=== PATIENT | female | born 1980 | race Caucasian/White ===

== ENCOUNTER 2017-12-27 03:50 | Inpatient (IN) | payer OTHER ==
[2017-12-27] MEDS ORDERED: Penicillin G Potassium IV* 5,000,000 UNITS in NS 0.9% 100 ML* 100 ML IVPB ONE (04:35)
[2017-12-27 05:12] LABS: ABS Basophils 0.1 10^3/ul (0-0.2); ABS Eosinophils 0.1 10^3/ul (0-0.6); ABS Lymphocytes 1.2 10^3/ul (1.0-4.8); ABS Monocytes 0.7 10^3/ul (0-0.8); ABS Neutrophils 10.7 10^3/ul (1.5-7.7); ABS Nucleated RBC 0 10^3/ul; Eosinophil % 0.9 % (0-6); Hematocrit 39 % (35-47); Hemoglobin 13.5 g/dl (12.0-16.0); Lymphocyte % 9.4 % (25-47); Mean Corpuscular HGB Conc 35 g/dl (31-36); Mean Corpuscular Hemoglobin 32 pg (27-31); Mean Corpuscular Volume 93 fL (80-97); Mean Platelet Volume 10 um3 (7.4-10.4); Nucleated Red Blood Cells % 0; Platelet Count 182 10^3/ul (150-450); Red Blood Count 4.19 10^6/ul (4.0-5.4); Red Cell Distribution Width 13 % (10.5-15); White Blood Count 12.7 10^3/ul (3.5-10.8)
[2017-12-27] MEDS ORDERED: Misoprostol TAB* 100 MCG ONE (09:10)
[2017-12-27] MEDS: Penicillin G Potassium IV* 2,500,000 UNITS in NS 0.9% 100 ML* 100 ML IVPB SCH ×4 (09:52→21:29)
[2017-12-27] MEDS: Levothyroxine TAB* 100 MCG TAB PO SCH (14:46)
[2017-12-27] MEDS ORDERED: Oxytocin in LR* 20 UNITS/1,000 ML BAG IVPB ONE (20:22)
[2017-12-27] MEDS ORDERED: Oxytocin in LR* 20 UNITS/1,000 ML BAG IVPB SCH (21:00)
[2017-12-28] MEDS ORDERED: fentaNYL* 50 MCG/ML 2 ML VIAL (100 MCG VIAL) IV SLOW PU ONE (00:51)
[2017-12-28] MEDS ORDERED: fentaNYL* 50 MCG/ML 2 ML VIAL (100 MCG VIAL) ONE ×2 (00:54→02:29)
[2017-12-28] MEDS ORDERED: OBEPIDURAL* 250 ML EPIDURAL ONE (01:31)
[2017-12-28] MEDS ORDERED: Famotidine TAB* 20 MG PO PRN (01:38)
[2017-12-28] MEDS ORDERED: EPHEDrine (Pressors)* 50 MG/ML VIAL IV PUSH PRN ×2 (01:38)
[2017-12-28] MEDS ORDERED: Phenylephrine IV* 40 MCG/ML 10 ML SYRINGE IV PUSH PRN ×2 (01:38)
[2017-12-28] MEDS ORDERED: Sodium Citrate/Citric Acid* 15 ML UDC PO PRN (01:38)
[2017-12-28] MEDS ORDERED: OBEPIDURAL* 250 ML EPIDURAL SCH (02:00)
[2017-12-28] MEDS: Penicillin G Potassium IV* 2,500,000 UNITS in NS 0.9% 100 ML* 100 ML IVPB SCH ×2 (02:14→12:45)
[2017-12-28] MEDS ORDERED: Oxytocin in LR* 20 UNITS/1,000 ML BAG IVPB SCH (03:30)
[2017-12-28] MEDS ORDERED: Witch Hazel PAD* JAR TOPICAL PRN (03:43)
[2017-12-28] MEDS ORDERED: Glycerin ADULT SUPP PR PRN (03:43)
[2017-12-28] MEDS ORDERED: Dibucaine 1% 28.35 GM TUBE PR PRN (03:43)
[2017-12-28] MEDS: Docusate CAP* 100 MG PO SCH ×3 (09:21→21:50)
[2017-12-28] MEDS: Simethicone TAB* 80 MG TAB.CHEW PO SCH ×4 (09:21→22:34)
[2017-12-28] MEDS: Ibuprofen TAB* 600 MG PO PRN ×3 (09:21→21:49)
[2017-12-28] MEDS: Levothyroxine TAB* 100 MCG TAB PO SCH (12:46)
[2017-12-28] MEDS: Acetaminophen TAB* 325 MG PO PRN (21:51)
--- NOTE | 2017-12-28 22:27 | PTEDU ---
Patient Name: ROLANDA SCHULER JALEEL YUVALROLANDA selected video: BBOB: Bonding Through Infant Massage to view on 12/28/2017 at 1 0:26:38 PM from [id number]
[2017-12-29] MEDS: Ibuprofen TAB* 600 MG PO PRN ×3 (03:51→18:24)
[2017-12-29] MEDS: Acetaminophen TAB* 325 MG PO PRN ×4 (03:51→21:36)
[2017-12-29 06:45] LABS: ABS Basophils 0.1 10^3/ul (0-0.2); ABS Eosinophils 0.1 10^3/ul (0-0.6); ABS Lymphocytes 1.7 10^3/ul (1.0-4.8); ABS Neutrophils 11.3 10^3/ul (1.5-7.7); ABS Nucleated RBC 0 10^3/ul; Eosinophil % 0.7 % (0-6); Hematocrit 30 % (35-47); Hemoglobin 10.7 g/dl (12.0-16.0); Lymphocyte % 12.3 % (25-47); Mean Corpuscular HGB Conc 36 g/dl (31-36); Mean Corpuscular Hemoglobin 33 pg (27-31); Mean Corpuscular Volume 93 fL (80-97); Mean Platelet Volume 10 um3 (7.4-10.4); Nucleated Red Blood Cells % 0; Platelet Count 162 10^3/ul (150-450); Red Blood Count 3.24 10^6/ul (4.0-5.4); Red Cell Distribution Width 13 % (10.5-15); White Blood Count 14.2 10^3/ul (3.5-10.8)
[2017-12-29] MEDS: Docusate CAP* 100 MG PO SCH ×3 (08:48→21:36)
[2017-12-29] MEDS ORDERED: Ferrous Gluconate TAB* 324 MG TAB PO SCH (09:00)
--- NOTE | 2017-12-29 09:21 | PTEDU ---
Patient Name: ROLANDA SCHULER JALEEL BARAKATROLANDA selected video: Follow Me Mum: The Tomas to Successful to view on 0 12/29/2017 at 9:21:04 AM [id number]
[2017-12-29] MEDS: Levothyroxine TAB* 100 MCG TAB PO SCH (13:20)
--- NOTE | 2017-12-29 20:01 | PTEDU ---
Patient Name: ROLANDA SCHULER JALEEL BARAKATROLANDA selected video: BBOB: Nurturing Your Gorgeous &Growing Baby by to view on 12/29/2017 at 8:01:08 PM [id number]
[2017-12-30] MEDS: Ibuprofen TAB* 600 MG PO PRN ×2 (00:30→06:18)
[2017-12-30] MEDS: Acetaminophen TAB* 325 MG PO PRN ×2 (03:51→09:26)
[2017-12-30 08:20] VITALS: BP 93/44
[2017-12-30] MEDS: Docusate CAP* 100 MG PO SCH (09:22)
[2017-12-30] MEDS: Levothyroxine TAB* 100 MCG TAB PO SCH (09:23)
== END 2017-12-30 12:50 | disposition home or self-care (01) | DRG 775 ==
LOC: MCHOBOUT 03:50 → MCHOB 04:30
PROVIDERS: ADMIT Midwife; ATTEND Midwife
PROC: 10E0XZZ Delivery of Products of Conception, External Approach (ICD-10-PCS; principal; 2017-12-28)
DX: O99.824 Streptococcus B carrier state complicating childbirth (principal); E03.9 Hypothyroidism, unspecified; O48.0 Post-term pregnancy; O70.0 First degree perineal laceration during delivery; O99.284 Endocrine, nutritional and metabolic diseases complicating childbirth; O69.81X0 Labor and delivery complicated by cord around neck, without compression, not applicable or unspecified; O42.02 Full-term premature rupture of membranes, onset of labor within 24 hours of rupture; Z37.0 Single live birth; Z3A.40 40 weeks gestation of pregnancy
CPT/HCPCS: 36415; 84112; 85025; 86850; 86900; 86901; A9270-GY; J2540; J3010; S0191

== ENCOUNTER 2018-11-16 09:38 | Emergency (ER) | payer OTHER ==
[2018-11-16 09:51] VITALS: BP 105/65
--- NOTE | 2018-11-16 09:57 | UC ---
Respiratory Complaint HPI - HPI Summary HPI Summary: 38 yo female presents with a dry cough for the last week. She has been taking mucinex OTC with no relief. She is currently breast feeding. Denies fever, chills, sinus symptoms, cough, SOB, chest pain, n/v. - History of Current Complaint Chief Complaint: UCRespiratory Stated Complaint: COUGH Time Seen by Provider: 11/16/18 09:56 Hx Obtained From: Patient Hx Last Menstrual Period: breast feeding Onset/Duration: Gradual Onset Severity Initially: Mild Severity Currently: Mild Pain Intensity: 4 Pain Scale Used: 0-10 Numeric Character: Cough: Nonproductive - Allergies/Home Medications Allergies/Adverse Reactions: Allergies Allergy/AdvReac Type Severity Reaction Status Date / Time Grass Allergy Mild Sneezing Uncoded 11/16/18 09:52 PMH/Surg Hx/FS Hx/Imm Hx Endocrine History: Hypothyroidism - Surgical History Surgical History: Yes Surgery Procedure, Year, and Place: Tonsillectomy as a child, Left ear reconstruction - Family History Known Family History: Positive: None - Social History Occupation: Employed Full-time Lives: With Family Alcohol Use: Rare Substance Use Type: None Smoking Status (MU): Never Smoked Tobacco - Immunization History Most Recent Influenza Vaccination: 08/2017 Most Recent Pneumonia Vaccination: never Review of Systems All Other Systems Reviewed And Are Negative: Yes Constitutional: Positive: Negative Skin: Positive: Negative Eyes: Positive: Negative ENT: Positive: Negative Respiratory: Positive: Cough Cardiovascular: Positive: Negative Gastrointestinal: Positive: Negative Neurological: Positive: Negative Psychological: Positive: Negative Physical Exam - Summary Physical Exam Summary: GENERAL: NAD. WDWN. No pain distress. SKIN: No rashes, sores, lesions, or open wounds. HEENT: Head: AT/NC Eyes: EOM intact. Conjunctiva clear without inflammation or discharge. Ears: Hearing grossly normal. Right TM intact, no bulging, erythema , or edema. 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 NTTP maxillary and frontal sinus. Throat: Posterior oropharynx without exudates or erythema. Uvula midline. NECK: Supple. Nontender. No lymphadenopathy. CHEST: CTAB. No r/r/w. No accessory muscle use. Breathing comfortably and in no distress. CV: RRR. Without m/r/g. Pulses intact. Cap refill <2seconds NEURO: Alert. PSYCH: Age appropriate behavior. Triage Information Reviewed: Yes Vital Signs: Initial Vital Signs Temp 97 F 11/16/18 09:49 Pulse 92 11/16/18 09:49 Resp 18 11/16/18 09:49 BP 105/65 11/16/18 09:49 Pulse Ox 99 11/16/18 09:49 Vital Signs Reviewed: Yes UC Diagnostic Evaluation - Laboratory O2 Sat by Pulse Oximetry: 99 Respiratory Course/Dx - Course Course Of Treatment: Suspect viral cough. Rx for delsym and tessalon. - Differential Dx/Diagnosis Provider Diagnosis: Viral URI with cough Discharge - Sign-Out/Discharge Documenting (check all that apply): Patient Departure All imaging exams completed and their final reports reviewed: No Studies - Discharge Plan Condition: Stable Disposition: HOME Prescriptions: Benzonatate CAP* [Tessalon 100 MG CAP*] 100 mg PO TID PRN #21 cap PRN Reason: Cough Dextromethorphan Polistirex [Delsym] 30 mg PO BEDTIME PRN #30 ml PRN Reason: Cough Patient Education Materials: Upper Respiratory Infection (DC) Referrals: Destiny Pinto MD [Primary Care Provider] - Additional Instructions: If you develop a fever, shortness of breath, chest pain, new or worsening symptoms - please call your PCP or go to the ED. - Billing Disposition and Condition Condition: STABLE Disposition: Home - Attestation Statements Provider Attestation: Per institutional requirements, I have reviewed the chart, however, I was not consulted specifically or made aware of this patient by the midlevel provider. I did not personally evaluate, interact with , or disposition this patient.
== END 2018-11-16 10:13 | disposition home or self-care (01) ==
LOC: UCEAST 09:38
DX: J06.9 Acute upper respiratory infection, unspecified (principal); R05 Cough; Z91.048 Other nonmedicinal substance allergy status
CPT/HCPCS: 99212; G0463